=== PATIENT | male | born 1995 | race Caucasian/White ===

== ENCOUNTER 2020-12-06 10:25 | Emergency (ER) | payer BC, SELFPAY ==
[2020-12-06 10:30] VITALS: PULSE 84; RESP 16; TEMP 36.8; O2SAT 100; BMI 24.3
[2020-12-06 10:32] VITALS: PULSE 84; RESP 16; TEMP 36.8; O2SAT 100; BMI 24.4
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
[2020-12-06 12:31] VITALS: BP 133/78; PULSE 84; RESP 16; TEMP 36.8; O2SAT 100
== END 2020-12-06 12:35 | disposition home or self-care (01) ==
PROVIDERS: Emergency Provider Physician Assistant; PCP Internal Medicine Adolescent Medicine
DX: S71.122A Laceration with foreign body, left thigh, initial encounter (principal); W22.8XXA Striking against or struck by other objects, initial encounter; Y92.89 Other specified places as the place of occurrence of the external cause
CPT/HCPCS: 12001; 73552; 99202; G0463

== ENCOUNTER 2021-01-10 10:32 | Outpatient (CLI) | payer SELFPAY ==
[2021-01-10 10:46] VITALS: BMI 22.8
[2021-01-10 12:13] LABS: Apearance,Urine Clear (Clear); Color,Urine Yellow (Yellow); PH,Urine 5.5 (5.0-8.5); Specific Gravity, Urine 1.025 (1.005-1.030)
[2021-01-10 12:14] LABS: Bilirubin,Urine Negative (Negative); Blood, Urine Negative (Negative); Glucose,Urine (UA) Negative (Negative); Ketones,Urine Negative (Negative); Protein,Urine Negative (Negative); UTC Leukocyte Esterase,Urine Negative (Negative); UTC Nitrate,Urine Negative (Negative); Urobilinogen,Urine 0.2 EU/dl (0.2)
== END 2021-01-10 10:53 | disposition home or self-care (01) ==
PROVIDERS: PCP Internal Medicine Adolescent Medicine; Visit Provider Physician Assistant
DX: Z02.4 Encounter for examination for driving license (principal)
CPT/HCPCS: 81003

== ENCOUNTER 2022-12-10 13:06 | Emergency (ER) | payer BC, SELFPAY ==
[2022-12-10 13:15] VITALS: BP 135/96; PULSE 89; RESP 18; TEMP 36.8; O2SAT 99; BMI 25.8
[2022-12-10 13:28] VITALS: BP 133/81; PULSE 80; RESP 19; TEMP 36.8; O2SAT 97; BMI 25.7
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
[2022-12-10 13:51] VITALS: BP 133/81; PULSE 84; RESP 19; TEMP 36.8; O2SAT 99
== END 2022-12-10 13:51 | disposition home or self-care (01) ==
LOC: UTC 13:09 → ER 13:20
PROVIDERS: Emergency Provider Emergency Medicine; PCP Internal Medicine Adolescent Medicine
DX: T23.272A Burn of second degree of left wrist, initial encounter (principal); T23.231A Burn of second degree of multiple right fingers (nail), not including thumb, initial encounter; T23.212A Burn of second degree of left thumb (nail), initial encounter; X04.XXXA Exposure to ignition of highly flammable material, initial encounter
CPT/HCPCS: 16020; 99283; 99284

== ENCOUNTER 2023-01-02 10:21 | Outpatient (CLI) | payer SELFPAY | END 2023-01-02 12:55 | disposition home or self-care (01) | PROVIDERS: PCP Internal Medicine Adolescent Medicine; Visit Provider Nurse Practitioner Family | DX: Z02.4 Encounter for examination for driving license (principal) ==